=== PATIENT | female | born 1960 | race Caucasian/White ===

== ENCOUNTER 2017-07-01 07:28 | Day surgery (SDC) | payer BC, OTHER ==
[~2017-07-01 07:28] MED LIST: Dextrose 5%-0.45% NaCl 1,000 ML IV SCH; Midazolam 1 MG/ML 2 ML SDV ONE; Sodium Chloride 0.9% 10 ML Syringe FLUSH PRN; fentaNYL 100 MCG/2 ML SDV ONE
[2017-07-01] MEDS ORDERED: fentaNYL 100 MCG/2 ML SDV IV ONE ×3 (07:29→08:53)
[2017-07-01] MEDS ORDERED: Midazolam 1 MG/ML 2 ML SDV IV ONE ×3 (07:29→08:54)
[2017-07-01 13:28] VITALS: BP 143/80
--- NOTE | 2017-07-01 13:54 | OR ---
DATE: 07/01/2017 PROCEDURE: Esophagogastroduodenoscopy and multiple pinch biopsies. INSTRUMENT USED: GIF-H180 Olympus video panendoscope. PREMEDICATIONS: No oral topical anesthesia used. Fentanyl 100 mcg intravenous, Versed 2 mg intravenous. Nasal O2 cannula. The procedure was done under pulse oximetry, BP recording, and air sampling and monitoring. INDICATION: The patient with persistent upper abdominal pain, dyspepsia, unexplained, and not responsive to medical measures. Esophagogastroduodenoscopy is performed for detection of any active erosive lesions, malignancy also under consideration, H. pylori status to be determined, endoscopic hemostasis therapy if needed. DESCRIPTION OF PROCEDURE: The scope was passed with ease. Adequate visualization of the esophagus was made from proximal to distal areas. No upper esophageal lesions identified. No distal esophageal stricture. No uphill or downhill esophageal varices. No Simran-العلي tear. No evidence of erosive esophagitis by Nelson criteria. No esophageal polyp or tumor mass identified. Z-line was seen at around 40 cm distal to the oral verge, configuration consistent with grade 1 by ZAP classification. No proximal gastric varices noted. Gastric fundus examination by retroflexion showed no polypoid lesions. No gastric ulcer, malignant mass, or vascular ectasia identified. Duodenal bulb showed no ulcer. Visualized second part of the duodenum was unremarkable. Multiple pinch biopsies were taken from the gastric antrum and proximal body and sent for PyloriTek test for H. pylori, and if negative in hour, the tissue is to be sent for histopathology. No bleeding was noted from any of the visualized areas at the completion of examination. Photographs were taken of the duodenal bulb, gastric antrum, fundus, and distal esophagus. IMPRESSION: Normal study. The patient tolerated the procedure well. [facility] /[id number]
== END 2017-07-01 11:07 | disposition home or self-care (01) ==
LOC: DL.ENDO 07:28
PROVIDERS: ATTEND Internal Medicine Gastroenterology
DX: R10.10 Upper abdominal pain, unspecified (principal); R10.13 Epigastric pain; F32.9 Major depressive disorder, single episode, unspecified; Z88.1 Allergy status to other antibiotic agents; Z88.2 Allergy status to sulfonamides; Z88.8 Allergy status to other drugs, medicaments and biological substances
CPT/HCPCS: 43239; 87077; J2250; J3010; J7042

== ENCOUNTER 2021-01-12 05:29 | Day surgery (SDC) | payer OTHER ==
[~2021-01-12 05:29] MED LIST changes: -Dextrose 5%-0.45% NaCl 1,000 ML IV SCH; -Sodium Chloride 0.9% 10 ML Syringe FLUSH PRN
[2021-01-12] MEDS ORDERED: Midazolam 1 MG/ML 2 ML SDV IV ONE ×3 (05:30→07:06)
[2021-01-12] MEDS ORDERED: fentaNYL 100 MCG/2 ML SDV IV ONE ×3 (05:30→07:05)
[2021-01-12] MEDS ORDERED: Dextrose 5%-0.45% NaCl 1,000 ML IV SCH ×2 (06:00→07:30)
[2021-01-12] MEDS ORDERED: Sodium Chloride 0.9% 10 ML Syringe FLUSH PRN (07:28)
--- NOTE | 2021-01-12 08:06 | OR ---
DATE: 01/12/2021 PROCEDURE: Esophagogastroduodenoscopy and multiple pinch biopsies. INSTRUMENT USED: GIF-HQ190 Olympus video panendoscope. PREMEDICATIONS: No oral or topical anesthesia used. Fentanyl 100 mcg intravenous, Versed 2 mg intravenous. Nasal O2 cannula. The procedure was done under pulse oximetry, BP recording, and manager monitoring. INDICATION: The patient with longstanding reflux disease, on high-dose PPI, with persistent solid dysphagia, unexplained. Esophagogastroduodenoscopy is performed for detection of any active erosive lesions, malignancy also under consideration, H pylori status to be determined, esophageal dilatations if indicated, endoscopic hemostasis therapy if needed. DESCRIPTION OF PROCEDURE: The scope was passed with ease. Adequate visualization of the esophagus was made from proximal to distal areas. No upper esophageal lesions identified. No distal esophageal stricture. No uphill or downhill esophageal varices. No Simran-العلي tear. No evidence of erosive esophagitis by [place] criteria. No esophageal polyp or tumor mass identified. Z-line was seen at around 40 cm distal to the oral verge. No proximal gastric varices noted. Gastric fundus examination by retroflexion showed no polypoid lesions. No gastric ulcer, malignant mass, or vascular ectasia identified. Duodenal bulb showed no ulcer. Visualized second part of the duodenum was unremarkable. Multiple pinch biopsies were taken from the gastric antrum and proximal body and sent for PyloriTek test for H pylori and histopathology. Four-quadrant biopsies were taken from the distal and proximal esophagus and sent for any evidence of esophagitis. No bleeding was noted from any of the visualized areas at the completion of examination. Photographs were taken of the duodenal bulb, gastric antrum, fundus, and distal esophagus. IMPRESSION: Normal study. The patient tolerated the procedure well. [facility] /[id number]
[2021-01-12 09:54] VITALS: BP 129/64; PULSE 62
== END 2021-01-12 09:21 | disposition home or self-care (01) ==
LOC: DL.ENDO 05:29
PROVIDERS: ATTEND Internal Medicine Gastroenterology
DX: K21.9 Gastro-esophageal reflux disease without esophagitis (principal)
CPT/HCPCS: 43239; 87077; J2250; J3010; J7042

== ENCOUNTER → 2022-01-30 | Day surgery (SDC) | payer OTHER ==
[~2022-01-30] MED LIST changes: +Acetaminophen 325 MG Tab PO PRN; +Acetaminophen/Codeine 300-30 MG Tab PO PRN; +Apraclonidine 0.5% Ophth Soln 5 ML Bot EYELF ONE; +Balanced Salt Solution Ophth Irrig 500 ML Bottle IOCULAR ONE; +Cataract Ophth Solution EYELF ONE; +Chondroitin Sulfate/Hyaluronate Sodium Ophth Inj 0.5 ML Syringe IOCULAR ONE; +Dexamethasone 4 MG/ML SDV IV ONE; +Dexamethasone/Neomycin/Polymyxin B Ophth Oint 3.5 GM Tube EYELF ONE; +Diclofenac Sodium 0.1% Ophth Soln 5 ML Bottle EYELF ONE; +Lidocaine 1% 30 ML SDV ONE; +Midazolam 1 MG/ML 2 ML SDV IV ONE; -Midazolam 1 MG/ML 2 ML SDV ONE; +Moxifloxacin 0.5% Ophth Soln 3 ML Bottle EYELF ONE; +Ondansetron 4 MG/2 ML SDV IVPUSH PRN; +Phenylephrine 10% Ophth Soln 5 ML Bot EYELF ONE; +Povidone-Iodine 5% Sterile Ophth Soln 30 ML Bottle EYELF ONE; +Proparacaine 0.5% Ophth Soln 15 ML Bottle EYELF ONE; +Sodium Chloride 0.9% 10 ML Syringe FLUSH PRN; +Sodium Chloride 0.9% 10 ML Syringe IV ONE; +Tetracaine HCl/PF 0.5% 4 ML Bottle EYELF ONE; +Timolol Maleate 0.5% Ophth Soln 5 ML Bottle EYELF ONE; +Tobramycin 0.3% Ophth Drops 5 ML Bottle EYELF SCH; +Tropicamide 1% Ophth Soln 15 ML Bottle EYELF ONE; +Vancomycin 500 MG SDV EYELF ONE; -fentaNYL 100 MCG/2 ML SDV ONE
[2022-01-30 06:50] VITALS: PULSE 91
[2022-01-30 11:53] VITALS: BP 134/84
== END ==
LOC: DL.SDS 06:33
PROVIDERS: ATTEND Ophthalmology
DX: H25.812 Combined forms of age-related cataract, left eye (principal); K21.9 Gastro-esophageal reflux disease without esophagitis; J45.909 Unspecified asthma, uncomplicated; Z98.890 Other specified postprocedural states; Z79.899 Other long term (current) drug therapy; Z88.8 Allergy status to other drugs, medicaments and biological substances
CPT/HCPCS: 00142; 66984; A9270; J1100; J2250; J3370; J3490; V2632

== ENCOUNTER 2022-02-06 06:32 | Day surgery (SDC) | payer OTHER ==
[~2022-02-06 06:32] MED LIST changes: -Apraclonidine 0.5% Ophth Soln 5 ML Bot EYELF ONE; -Balanced Salt Solution Ophth Irrig 500 ML Bottle IOCULAR ONE; -Cataract Ophth Solution EYELF ONE; +Cataract Ophth Solution EYERT ONE; -Chondroitin Sulfate/Hyaluronate Sodium Ophth Inj 0.5 ML Syringe IOCULAR ONE; -Dexamethasone 4 MG/ML SDV IV ONE; -Dexamethasone/Neomycin/Polymyxin B Ophth Oint 3.5 GM Tube EYELF ONE; -Diclofenac Sodium 0.1% Ophth Soln 5 ML Bottle EYELF ONE; -Lidocaine 1% 30 ML SDV ONE; -Midazolam 1 MG/ML 2 ML SDV IV ONE; -Moxifloxacin 0.5% Ophth Soln 3 ML Bottle EYELF ONE; +Moxifloxacin 0.5% Ophth Soln 3 ML Bottle EYERT ONE; -Phenylephrine 10% Ophth Soln 5 ML Bot EYELF ONE; +Phenylephrine 10% Ophth Soln 5 ML Bot EYERT ONE; -Povidone-Iodine 5% Sterile Ophth Soln 30 ML Bottle EYELF ONE; +Povidone-Iodine 5% Sterile Ophth Soln 30 ML Bottle EYERT ONE; -Proparacaine 0.5% Ophth Soln 15 ML Bottle EYELF ONE; +Proparacaine 0.5% Ophth Soln 15 ML Bottle EYERT ONE; +Proparacaine 0.5% Ophth Soln 15 ML Bottle ONE; -Sodium Chloride 0.9% 10 ML Syringe IV ONE; -Tetracaine HCl/PF 0.5% 4 ML Bottle EYELF ONE; -Timolol Maleate 0.5% Ophth Soln 5 ML Bottle EYELF ONE; +Timolol Maleate 0.5% Ophth Soln 5 ML Bottle EYERT ONE; -Tobramycin 0.3% Ophth Drops 5 ML Bottle EYELF SCH; +Tobramycin 0.3% Ophth Drops 5 ML Bottle EYERT SCH; -Tropicamide 1% Ophth Soln 15 ML Bottle EYELF ONE; +Tropicamide 1% Ophth Soln 15 ML Bottle EYERT ONE; -Vancomycin 500 MG SDV EYELF ONE
[2022-02-06] MEDS ORDERED: Midazolam 1 MG/ML 2 ML SDV IV ONE (06:33)
[2022-02-06] MEDS ORDERED: Sodium Chloride 0.9% 10 ML Syringe IV ONE (06:33)
[2022-02-06] MEDS ORDERED: Dexamethasone 4 MG/ML SDV IV ONE (06:33)
[2022-02-06] MEDS ORDERED: Tetracaine HCl/PF 0.5% 4 ML Bottle EYERT ONE (07:50)
[2022-02-06] MEDS ORDERED: Diclofenac Sodium 0.1% Ophth Soln 5 ML Bottle EYERT ONE (07:52)
[2022-02-06] MEDS ORDERED: Apraclonidine 0.5% Ophth Soln 5 ML Bot EYERT ONE (07:52)
[2022-02-06] MEDS ORDERED: Povidone-Iodine 5% Sterile Ophth Soln 30 ML Bottle EYERT ONE (07:52)
[2022-02-06] MEDS ORDERED: Lidocaine 1% 30 ML SDV ONE (07:53)
[2022-02-06] MEDS ORDERED: Dexamethasone/Neomycin/Polymyxin B Ophth Oint 3.5 GM Tube EYERT ONE (07:53)
[2022-02-06] MEDS ORDERED: Vancomycin 500 MG SDV EYERT ONE (07:53)
[2022-02-06] MEDS ORDERED: Balanced Salt Solution Ophth Irrig 500 ML Bottle IOCULAR ONE (07:53)
[2022-02-06] MEDS ORDERED: Chondroitin Sulfate/Hyaluronate Sodium Ophth Inj 0.5 ML Syringe IOCULAR ONE (07:54)
[2022-02-06 09:43] VITALS: BP 117/58; PULSE 88
== END 2022-02-06 08:59 | disposition home or self-care (01) ==
LOC: DL.SDS 06:32
PROVIDERS: ATTEND Ophthalmology
DX: H25.811 Combined forms of age-related cataract, right eye (principal); K58.9 Irritable bowel syndrome, unspecified; G89.29 Other chronic pain; F32.A Depression, unspecified; M25.50 Pain in unspecified joint; G43.909 Migraine, unspecified, not intractable, without status migrainosus; J45.909 Unspecified asthma, uncomplicated; J32.9 Chronic sinusitis, unspecified; Z79.899 Other long term (current) drug therapy; Z79.51 Long term (current) use of inhaled steroids; Z98.51 Tubal ligation status; Z79.2 Long term (current) use of antibiotics; Z98.1 Arthrodesis status; Z98.890 Other specified postprocedural states; Z86.69 Personal history of other diseases of the nervous system and sense organs; Z79.1 Long term (current) use of non-steroidal anti-inflammatories (NSAID); Z88.2 Allergy status to sulfonamides; Z88.8 Allergy status to other drugs, medicaments and biological substances
CPT/HCPCS: 00142; 66984; A9270; J1100; J2250; J3370; J3490; V2632

== ENCOUNTER → 2022-08-12 | Day surgery (SDC) | payer OTHER ==
[~2022-08-12] MED LIST changes: -Acetaminophen 325 MG Tab PO PRN; -Acetaminophen/Codeine 300-30 MG Tab PO PRN; -Cataract Ophth Solution EYERT ONE; +Midazolam 1 MG/ML 2 ML SDV IV ONE; +Midazolam 1 MG/ML 2 ML SDV ONE; -Moxifloxacin 0.5% Ophth Soln 3 ML Bottle EYERT ONE; -Ondansetron 4 MG/2 ML SDV IVPUSH PRN; -Phenylephrine 10% Ophth Soln 5 ML Bot EYERT ONE; -Povidone-Iodine 5% Sterile Ophth Soln 30 ML Bottle EYERT ONE; -Proparacaine 0.5% Ophth Soln 15 ML Bottle EYERT ONE; -Proparacaine 0.5% Ophth Soln 15 ML Bottle ONE; +Sodium Chloride 0.9% 10 ML Syringe FLUSH SCH; -Timolol Maleate 0.5% Ophth Soln 5 ML Bottle EYERT ONE; -Tobramycin 0.3% Ophth Drops 5 ML Bottle EYERT SCH; -Tropicamide 1% Ophth Soln 15 ML Bottle EYERT ONE; +fentaNYL 100 MCG/2 ML SDV IV ONE; +fentaNYL 100 MCG/2 ML SDV ONE
[2022-08-12] MEDS: Dextrose 5%-0.45% NaCl 1,000 ML IV SCH (07:02)
[2022-08-12] MEDS: fentaNYL 100 MCG/2 ML SDV IV ONE ×2 (07:53→07:54)
[2022-08-12] MEDS: Midazolam 1 MG/ML 2 ML SDV IV ONE ×6 (07:54→08:00)
[2022-08-12 10:42] VITALS: BP 121/61; PULSE 77
== END | disposition home or self-care (01) ==
LOC: DL.ENDO 06:31
PROVIDERS: ATTEND Internal Medicine Gastroenterology
DX: Z12.11 Encounter for screening for malignant neoplasm of colon (principal); D12.0 Benign neoplasm of cecum; K21.9 Gastro-esophageal reflux disease without esophagitis; K58.9 Irritable bowel syndrome, unspecified; Z88.2 Allergy status to sulfonamides; Z88.1 Allergy status to other antibiotic agents
CPT/HCPCS: J2250; J3010; J7042